=== PATIENT | female | born 1970 | race Caucasian/White ===

== ENCOUNTER → 2017-11-12 | Outpatient (CLI) | payer OTHER ==
[~2017-11-12] MED LIST: CEPHALEXIN 500500 M2 PO; CLONAZEPAM; PRISTIQ50 MG; TOPAMAX; ULTRAM 50MG TAB50 MG; VICODIN ES TAB1 EACH
== END ==
LOC: M.RAD 13:43
DX: Z12.31 Encounter for screening mammogram for malignant neoplasm of breast (principal)

== ENCOUNTER 2020-04-19 21:10 | Emergency (ER) | payer OTHER ==
[~2020-04-19] VITALS: Ht 160 cm; Wt 96.6 kg
[2020-04-19] MEDS ORDERED: ESCITALOPRA5 MG/5 ML PO (21:32)
[2020-04-19] MEDS ORDERED: XANAX 0.5 MG0.5 MG PO (21:32)
[2020-04-19] MEDS ORDERED: ACYCLOVIR 200200 MG PO (21:33)
[2020-04-19] MEDS ORDERED: NEXIUM20 M1 PO (21:33)
[2020-04-19 22:42] LABS: ABSOLUTE EOSINOPHILS 0.4 thou/uL (0.0-0.7); ABSOLUTE LYMPHOCYTES 3.5 thou/uL (0.8-5.3); ABSOLUTE MONOCYTES 0.7 thou/uL (0.0-1.2); ABSOLUTE NEUTROPHILS 4.6 thou/uL (1.6-8.1); BASOPHILS 0.3 %; EOSINOPHILS 4.3 %; HEMATOCRIT 38.5 % (37.0-47.0); HEMOGLOBIN 12.9 gm/dL (12.0-15.0); LYMPHOCYTES 37.8 %; MCH 31.1 pg (26.0-34.0); MCHC 33.5 g/dL (28.0-37.0); MCV 92.8 fL (80.0-100.0); MONOCYTES 7.4 %; MPV 8.7 fl. (7.2-11.1); NUCLEATED RBCS 0 /100WBC; PLATELET COUNT* 286 thou/uL (150-400); POLYS 50.2 %; RBC 4.15 mil/uL (4.20-5.00); RDW-CV 13.5 % (10.5-14.5); WBC 9.3 thou/uL (4.0-11.0)
[2020-04-19 22:50] LABS: INFLUENZA A ANTIGEN Negative (Negative); INFLUENZA B ANTIGEN Negative (Negative)
[2020-04-19 22:53] LABS: CALCIUM 8.8 mg/dL (8.5-10.1); CREATININE 1.1 mg/dL (0.6-1.3); POTASSIUM 3.7 mmol/L (3.5-5.1)
[2020-04-19 23:04] LABS: ALBUMIN 3.4 g/dL (3.4-5.0); MAGNESIUM 1.8 mg/dL (1.8-2.4); TOTAL BILIRUBIN 0.3 mg/dL (<0.1-1.0); TOTAL PROTEIN 7.1 g/dL (6.4-8.2)
[2020-04-20] MEDS ORDERED: TESSALON PERLE100 MG PO (00:55)
[2020-04-20] MEDS ORDERED: ZOFRAN ODT4 MG DISSOLVE (00:55)
[2020-04-20 01:25] VITALS: BP 126/79
--- NOTE | 2020-04-20 11:05 | EKG ---
[place] [address] ELECTROCARDIOGRAM REPORT Name: EV RAMOS Room: [facility]#: [id number] Admission: 04/19/20 Attend Phys: Discharge: 04/20/20 Date of : 66 Date of Service: 04/19/20 225 Report #: [id number] THIS REPORT FOR: //name// [facility] ED Test Date: 2020-04-19 Test Time: 22:51:12 Pat Name: EV RAMOS Department: Room: Gender: Silk Presser: EMMIE : 1970 Requested By: Reyes Stone Order Number: [id number] MD: Jose Angel Shah Measurements Intervals [place] Rate: 76 P: 11 KS: 159 QRS: 12 QRSD: 96 T: -4 QT: 395 QTc: 445 Interpretive Statements Sinus rhythm Low voltage, precordial leads Borderline T abnormalities, anterior leads No previous ECG available for comparison Electronically Signed On 04-20-2020 11:05:15 [employer] by Jose Angel Shah [email or web address] <ELECTRONICALLY SIGNED> By: Jose Angel Shah MD, [facility] 04/20/20 1105 50 50 Jose Angel Shah MD, [facility] /EPI
== END 2020-04-20 01:25 | disposition home or self-care (01) ==
LOC: M.ERS 21:10
PROVIDERS: Emergency Medicine Emergency Medical Services
DX: U07.1 COVID-19 (principal); B34.9 Viral infection, unspecified; G43.909 Migraine, unspecified, not intractable, without status migrainosus; Z79.899 Other long term (current) drug therapy; Z88.6 Allergy status to analgesic agent; Z88.0 Allergy status to penicillin